=== PATIENT | female | born 1945 | race African-American/Black ===

== ENCOUNTER 2017-01-18 20:49 | Emergency (ER) | payer MEDICARE, BC ==
[2015-07-05 08:53] VITALS: BMI 37.0
[~2017-01-18 20:49] MED LIST: AMITRIPTYLINE H50 MG PO; BENICAR HCT 40-1 TAB PO; CLARINEX5 MG PO; METOPROLOL TART50 MG PO; PLAVIX75 MG; PLAVIX75 MG PO; PREDNISONE1 MG
== END 2017-01-18 22:51 | disposition home or self-care (01) ==
LOC: D.ER 20:49
DX: K08.89 Other specified disorders of teeth and supporting structures (principal); K04.7 Periapical abscess without sinus; I10 Essential (primary) hypertension

== ENCOUNTER 2017-08-16 01:13 | Emergency (ER) | payer MEDICARE, BC ==
[2015-07-05 08:53] VITALS: BMI 37.0
== END 2017-08-16 02:28 | disposition home or self-care (01) ==
LOC: D.ER 01:13
DX: I10 Essential (primary) hypertension (principal); R51 Headache

== ENCOUNTER 2017-08-25 18:51 | Emergency (ER) | payer MEDICARE, BC ==
[2015-07-05 08:53] VITALS: BMI 37.0
== END 2017-08-25 20:00 | disposition home or self-care (01) ==
LOC: D.ER 18:51
DX: I10 Essential (primary) hypertension (principal); F41.9 Anxiety disorder, unspecified

== ENCOUNTER 2017-08-29 20:05 | Emergency (ER) | payer MEDICARE, BC ==
[2015-07-05 08:53] VITALS: BMI 37.0
== END 2017-08-29 22:07 | disposition home or self-care (01) ==
LOC: D.ER 20:05
DX: I10 Essential (primary) hypertension (principal)

== ENCOUNTER 2017-09-04 21:27 | Emergency (ER) | payer MEDICARE, BC ==
[2015-07-05 08:53] VITALS: BMI 37.0
== END 2017-09-05 00:27 | disposition home or self-care (01) ==
LOC: D.ER 21:27
DX: I10 Essential (primary) hypertension (principal); R51 Headache

== ENCOUNTER 2017-09-07 05:33 | Observation (INO) | payer MEDICARE, BC ==
[~2017-09-07] VITALS: Ht 162.6 cm; Wt 101.8 kg
--- NOTE | ~2017-09-07 | HEMODYNAMI ---
PATIENT:LIBRA SNIDER MEDICAL RECORD: [id number] : 45 LOCATION[facility] D.[id number] ADMISSION DATE: 09/07/17 Generatedon:09/07/201714:24 Patient name: LIBRA SNIDER Patient #: [id number] SSN: : 1945 Date of study: 09/07/2017 Page: Of Hemodynamic Procedure Report Patient Data Patient Demographics Procedure consent was obtained First Name: LIBRA Gender: Female Last Name: AGATHA : 1945 Middle Initial: Julian Age: 72 year(s) Patient #: [id number] Race: Black Additional ID: [id number] Contact details Address: [address] [place] [address] State: [place] City: [place] Zip code: [address] Past Medical History Allergies Allergen Reaction Date Comments Reported Other allergy 07/05/2015 *Shrimp* Codeine 07/05/2015 Admission Admission Data Admission Date: 09/07/2017 Admission Time: 6:28 Room #: D.2116 Lab Results Lab Result Date: 09/07/2017 Lab Result Time: 0:00 Biochemistry Name Units Result Min Max BUN mg/dl 10 --(-*--)-- 7 18 Creatinine mg/dl 0.8 --(-*--)-- 0.6 1.3 CBC Name Units Result Min Max Hemoglobin g/dl 14.8 --(-*--)-- 13.5 17.5 Procedure Procedure Types Cath Procedure Diagnostic Procedure LHC LH w/Coronaries Sedation Charges Moderate Sedation up to 15 minutes Procedure Description Procedure Date Procedure Date: 09/07/2017 Procedure Start Time: 14:07 Procedure End Time: 14:24 Procedure Staff Name Function Vinny Hagan MD Performing Physician Aidee Shin RT Monitor Candice Sheikh RT Scrub Vignesh Alexandre RN Nurse Procedure Data Cath Procedure Fluoroscopy Diagnostic fluoroscopy Total fluoroscopy Time: 1 time: 1 min min Diagnostic fluoroscopy Total fluoroscopy dose: 428 dose: 428 mGy mGy Contrast Material Contrast Material Type Amount (ml) Isovue 300 50 Entry Location Entry Primary Successful Side Size Upsize Upsize Entry Closure Succes sful Closure Location (Fr) 1 (Fr) 2 (Fr) Remarks Device Remarks Femoral Right 5 Fr Exoseal artery Estimated blood loss: 5 ml Procedure Complications No complications Procedure Medications Medication Administration Route Dosage Oxygen etCO2 Nasal cannula 2 l/min Heparin Flush Bag added to field 2 bags (1000units/500ml NS) 0.9% NaCl I.V. 100 ml/hr Radial Cocktail added to field 1 syringe (Verapomil 2mg/Nitro 400mcg/Heparin 1500units) Fentanyl I.V. 50 mcg Versed I.V. 1 mg Fentanyl I.V. 50 mcg Versed I.V. 1 mg Fentanyl I.V. 50 mcg Fentanyl I.V. 50 mcg Hemodynamics Rest HGB: 14.8 (g/dl) Heart Rate: 99 (bpm) Pressure Samples Time Site Value (mmHg) Purpose Heart Use Rate(bpm) 14:21 LV 141/14,19 Snapshot 102 Gradients Valve Time Site Site Mean SEP/DFP Peak To Heart Use 1 2 (mmHg) (sec/min) Peak Rate (mmHg) (bpm) Aortic 14:21 LV AO 100 Snapshots Pre Cath Intra NCS Post Cath Vital Signs Time Heart Resp SPO2 etCO2 NIBP (mmHg) Rhythm Pain Sedation Rate (ipm) (%) (mmHg) Status Level (bpm) 13:58:59 102 16 92 5.2 190/93(133) NSR 0 (11) 10(A) , No pain 14:03:25 107 17 92 18.8 158/80(110) NSR 0 (11) 10(A) , No pain 14:07:51 103 17 93 33 153/75(105) NSR 0 (11) 9(A) , No pain 14:11:59 98 16 95 0 102/76(98) NSR 0 (11) 9(A) , No pain 14:16:54 97 16 95 36.1 125/73(92) NSR 0 (11) 9(A) , No pain 14:21:08 99 17 92 34.6 120/70(104) NSR 0 (11) 9(A) , No pain 14:23:48 98 16 88 28.5 105/86(100) NSR 0 (11) 9(A) , No pain Medications Time Medication Route Dose Verified Delivered Reason Notes Ef fectiveness by by 14:03:20 Oxygen etCO2 2 l/min Vinny Medellin Per Nasal [facility] Alex Alexandre RN physician cannula 14:03:28 Heparin Flush added 2 bags Vinny Medellin used for Bag to [facility] Alex Alexandre fishing rod marker (1000units/500ml field JUARES NS) 14:03:36 0.9% NaCl I.V. 100 Vinny Medellin Per ml/hr [facility] Alex Alexandre RN physician 14:03:45 Radial Cocktail added 1 Vinny Medellin used for (Verapomil to syringe [facility] Alex Alexandre fishing rod marker 2mg/Nitro field JUARES 400mcg/Heparin 1500units) 14:03:51 Fentanyl I.V. 50 mcg Vinny Medellin for BentleyAlex Alexandre RN sedation 14:03:58 Versed I.V. 1 mg Vinny Medellin for BentleyAlex Alexandre RN sedation 14:07:28 Fentanyl I.V. 50 mcg Vinny Medellin for BentleyAlex Alexandre RN sedation 14:07:30 Versed I.V. 1 mg Vinny Medellin for BentleyAlex Alexandre RN sedation 14:16:47 Fentanyl I.V. 50 mcg Vinny Medellin for BentleyAlex Alexandre RN sedation 14:19:15 Fentanyl I.V. 50 mcg Vinny Medellin for BentleyAlex Alexandre RN sedation Procedure Log Time Note 13:30:27 Candice Sheikh RT(R) sent for patient. Start room use. 13:45:29 Time tracking: Regular hours (M-F 7:00 - 5:00) 13:45:33 Plan of Care:Hemodynamics will remain stable., Cardiac rhythm will remain stable., Comfort level will be maintained., Respiratory function will remain adequate., Patient/ family verbilizes understanding of procedure., Procedure tolerated without complication., Recovers from procedure without complications.. 13:57:38 Vital chart was started 14:01:36 Patient received from Med II to [facility] 2 Alert and oriented. Tansferred to table in Supine position. 14:01:37 Warm blankets applied, and richie hugger turned on for patient comfort. 14:01:38 Correct patient and procedure confirmed by team. 14::39 Signed procedure consent form obtained from patient. 14:01:39 ECG and BP/O2 sat monitors applied to patient. 14:01:40 Baseline sample Acquired. 14:01:43 Rhythm: sinus rhythm 14:01:45 Full Disclosure recording started 14:01:48 H&P Date Dictated: 09/07/2017 New H&P dictated by physician.. 14:01:50 Pre-procedure instructions explained to patient. 14:01:50 Pre-op teaching completed and patient verbalized understanding. 14:01:51 Family in waiting room. 14:01:52 Patient NPO since Midnight. 14:01:55 Is the patient allergic to Iodine/contrast media? Yes. 14:01:56 Was the patient premedicated? Yes 14:01:57 Is patient on blood thinner?Yes 14:02:05 Is patient on blood thinner?No 14:02:06 Patient diabetic? No. 14:02:09 Previous problem with sedation/anesthesia? No ? 14:02:11 Snore? Yes 14:02:11 Sleep apnea? No 14:02:12 Deviated septum? No 14:02:13 Opens mouth fully? Yes 14:02:13 Sticks out tongue? Yes 14:02:16 Airway obstruction? No ? 14:02:19 Dentures? No ? 14:02:22 Pre procedure: right dorsailis pedis pulse 2+ Normal; easily identifiable; not easily obliterated 14:02:24 Pre procedure: left dorsailis pedis pulse 2+ Normal; easily identifiable; not easily obliterated 14:02:26 Patient pain scale 0/10 ?. 14:02:40 IV patent on arrival in right antecubital with 0.9% NaCl at O. 14:02:42 Lab results completed and on chart. 14:02:47 Right Radial & Right Groin area was prepped with chlora-prep and draped in sterile fashion 14:02:48 Alarms reviewed by R. N. 14:02:49 Sharps counted by scrub and verified by R.N. 14:02:50 Physician arrived 14:02:50 --------ALL STOP TIME OUT------ 14:02:51 Final Timeout: patient, procedure, and site verified with staff and physician. All members of the team are in agreement. 14:02:53 Right Radial & Right Groin site verified by team. 14:02:56 Physical assessment completed. ASA score P 2 - A patient with mild systemic disease as per Vinny Hagan MD. 14:03:05 Sedation plan: IV Moderate Sedation Medication:Versed, Fentanyl 14:03:20 Oxygen 2 l/min etCO2 Nasal cannula was administered by Vignesh Alexandre RN; Per physician; 14:03:28 Heparin Flush Bag (1000units/500ml NS) 2 bags added to field was administered by Vignesh Alexandre RN; used for procedure; 14:03:36 0.9% NaCl 100 ml/hr I.V. was administered by Vignesh Alexandre RN; Per physician; 14:03:45 Radial Cocktail (Verapomil 2mg/Nitro 400mcg/Heparin 1500units) 1 syringe added to field was administered by Vignesh Alexandre RN; used for procedure; 14:03:51 Fentanyl 50 mcg I.V. was administered by Vignesh Alexandre RN; for sedation; 14:03:58 Versed 1 mg I.V. was administered by Vignesh Alexandre RN; for sedation; 14:04:30 Use device set Radial Dx or PCI 14:04:31 ACIST Syringe (69069) opened to sterile field. 14:04:32 Medline Cath Pack ([id number]) opened to sterile field. 14:04:33 Bag Decanter () opened to sterile field. 14:04:33 DIAGNOSTIC WIRE .035 260cm J wire (697257) opened to sterile field. 14:04:33 ACIST Hand Control (75064) opened to sterile field. 14:04:34 ACIST Manifold (02921) opened to sterile field. 14:04:34 Tegaderm 4 x 4 (1626W) opened to sterile field. 14:04:35 MBrace Wrist Support ([id number]) opened to sterile field. 14:04:37 SHEATH 6Fr Prelude Radial ([id number]) opened to sterile field. 14:05:24 Lab Result : Hemoglobin 14.8 g/dl 14:05:24 Lab Result : Creatinine 0.8 mg/dl 14:05:24 Lab Result : BUN 10 mg/dl 14:05:58 Procedure started. 14:07:28 Fentanyl 50 mcg I.V. was administered by Vignesh Alexandre RN; for sedation; 14:07:30 Versed 1 mg I.V. was administered by Vignesh Alexandre RN; for sedation; 14:07:32 Local anesthetic to right radial artery with Lidocaine 2% by Vinny Hagan MD.INITIAL ACCESS ONLY 14:15:28 unable to gain radial access; preparing for femoral access 14:15:31 Local anesthetic to right femoral artery with Lidocaine 2% by Vinny Hagan MD.ADDITIONAL ACCESS 14:16:40 DIAGNOSTIC Multipack 5Fr catheter set ([id number]) opened to sterile field. 14:16:42 SHEATH 5Fr Prelude ([id number]) opened to sterile field. 14:16:47 Fentanyl 50 mcg I.V. was administered by Vignesh Alexandre RN; for sedation; 14:16:54 A 5 Fr sheath was inserted into the Right Femoral artery 14:17:31 5 Fr jl 4 guide catheter was inserted over the wire 14:17:37 LCA angiography performed. 14:17:39 Injector settings: Ml/sec: 3, Volume: 6, 14:17:40 Catheter removed. 14:17:47 5 Fr 3drc guide catheter was inserted over the wire 14:19:15 Fentanyl 50 mcg I.V. was administered by Vignesh Alexandre RN; for sedation; 14:19:49 RCA angiography performed. 14:19:51 Injector settings: Ml/sec: 3, Volume: 6, 14:19:58 Catheter removed. 14:20:06 EXOSEAL 5Fr (EX500) opened to sterile field. 14:20:56 5 Fr pig guide catheter was inserted over the wire 14:21:13 LV hemodynamics recorded. 14:21:15 LV gram done using FERREIRA 14:21:17 Injector settings: Ml/sec: 5, Volume: 15, 14:21:25 EF : 55 % 14:21:58 Catheter removed. 14:22:07 Sheath removed intact; hemostasis achieved with Exoseal to the Right Femoral artery. 14:22:10 Procedure ended.(Physican Out) 14:22:25 Fluoroscopy time 01.00 minutes. 14:22:29 Fluoroscopy dose: 428 mGy 14:22:29 Flurop Dose total: 428 14:22:33 Contrast amount:Isovue 300 50ml. 14:22:35 Sharps counted by scrub and verified by R.N. 14:22:37 Insertion/operative site no bleeding no hematoma. 14:22:40 Post-op/insertion site Right Femoral artery dressed using a 4 x 4 and Tegaderm. 14:22:42 Post right femoral artery:stable 14:22:47 Post procedure rhythm: unchanged. 14:22:49 Estimated blood loss: 5 ml 14:22:51 Post procedure instruction explained to patient.Patient verbalizes understanding. 14:22:51 Patient needs reinforcement of post procedure teaching. 14:23:17 Procedure type changed to Cath procedure, Diagnostic procedure, LHC, LHC w/Coronaries, Sedation Charges, Moderate Sedation up to 15 minutes 14:23:18 Procedure and supply charges have been captured, reviewed, submitted and are correct. 14:23:24 Procedure Complication : No complications 14:23:26 Vital chart was stopped 14:23:26 See physician's report for complete and final results. 14:23:57 Report given to CVICU. 14:24:00 Patient transfered to [facility] II with Stretcher. 14:24:01 Procedure ended. 14:24:01 Full Disclosure recording stopped 14:24:05 End room use (Document Last) Device Usage Item Name Manufacture Quantity Catalog Number Hospital Part Current M inimal Lot# / Charge Number Stock Stock Serial# Code ACIST Syringe Acist 1 84839 [id number] 2 0 (23660) [employer] Medline Cath Cardinal 1 [id number] 982536 88418 292489 5 [facility] ([id number]) Bag Decanter Microtek 1 2001S 157410 57021 694956 5 () Medical Inc. DIAGNOSTIC WIRE [facility] [place] 1 409446 087481 302057 501188 3 0 .035 260cm J wire (862009) ACIST Hand Acist 1 13665 759902 158931 712228 5 Control (05488) [employer] ACIST Manifold Acist 1 10093 751149 430791 699349 5 (28434) [employer] Inc Tegaderm 4 x 4 3M 1 1626W 954557 815924 549864 5 (1626W) MBrace Wrist Advanced 1 140-0250-00 044522 21513 547058 5 Support Vascular ([id number]) Dynamics SHEATH 6Fr Merit 1 [id number] 599813 357387 284343 5 Prelude Radial Medical ([id number]) DIAGNOSTIC Cardinal 1 [id number] 427274 97429 772964 3 0 Multipack 5Fr Health catheter set (GR2375) SHEATH 5Fr Merit 1 [id number] 245793 764561 657753 5 Prelude Medical ([id number]) EXOSEAL 5Fr Cardinal 1 EX500 436100 851564 744979 1 0 (EX500) Health Signature Audit [place] Stage Time Signature Unsigned Intra-Procedure 09/07/2017 Aidee Shin 2:24:40 PM RT(R) Signatures Monitor : Aidee Shin RT Signature : Date : Time : [facility] [address] [place] [address]
--- NOTE | ~2017-09-07 | CN ---
PATIENT NAME:LIBRA SNIDER MEDICAL RECORD: [id number] : 45 LOCATION:[facility] D.2116 ADMIT DATE: 09/07/17 ACCOUNT: [id number] CONSULTING PHYSICIAN: ERIK KHAN MD REFERRING PHYSICIAN: SUDHIR MENDEZ MD DATE OF CONSULTATION: 09/07/2017 HISTORY OF PRESENT ILLNESS: A 72-year-old female with a known history of coronary artery disease, has a history of hypertension, family history of coronary artery disease, was awoken last night with a chest pressure and tightness. Pressures were elevated. She has had problem with her pressures being up over the past month or so. She has not been able to be as active, mother being in the hospital for the last 5 weeks. Pain accompanied by shortness of breath and nausea. We are asked to see her concerning her cardiovascular status. PAST MEDICAL HISTORY: Includes history of hypertension. ALLERGIES: IODINE, CODEINE, AZITHROMYCIN. MEDICATIONS: Include Clarinex 5 mg p.o. every day, metoprolol 50 b.i.d., Benicar 40/12.5, amitriptyline 50 q.h.s. SOCIAL HISTORY: , lives here in [place]. Able to take care of all her ADLs. No set exercise program. Nonsmoker, nondrinker. REVIEW OF SYSTEMS: The patient reports easy bruising but reports no swollen glands. The patient reports no fever, no night sweats, no significant weight gain, no significant weight loss. No significant exercise tolerance. The patient reports no dry eyes, no irritation, no vision change. Patient reports no difficulty hearing and no ear pain. Patient reports no frequent nose bleeds or nose and sinus problems. Patient reports on arm pain on exertion. No shortness of breath while lying down. No history of heart murmur. Patient reports no cough, no wheezing or coughing up blood. Patient reports no abdominal pain, no vomiting. Normal appetite. No diarrhea and not vomiting blood. No nausea and no constipation. Patient reports no incontinence. No difficulty urinating. No hematuria. No increased frequency. Patient reports no muscle aches. No weakness, no arthralgias, no back pain. No swelling of the extremities. Patient reports no abnormal mole, no jaundice, no rashes. Reports no loss of consciousness. No weakness and no numbness. No seizures, dizziness, or headaches. The patient reports no depression, no sleep disturbance, feeling safe in a relationship and no alcohol abuse. Patient reports on fatigue. Reports no runny nose or sinus pressure. No itching, no hives, and no frequent sneezing. PHYSICAL EXAMINATION: GENERAL: Pleasant female in no acute distress. VITAL SIGNS: Blood pressure 132/66, pulse 81 and regular. HEENT: Normocephalic, atraumatic. NECK: No JVD or bruit. HEART: Regular. LUNGS: Jacinto clear. ABDOMEN: Soft, nontender. EXTREMITIES: Pulses 2+ with no edema. CONSULT REPORT [id number] LIBRA SNIDER DIAGNOSTIC DATA: ECG shows LVH. IMPRESSION: Difficult to tell if this is a demand ischemic type symptomatology with elevated blood pressure versus a true de wallace lesion. We will plan for diagnostic angiography. Intervention based on the above. TRANSINT:[id number] Voice Confirmation ID: [id number] DOCUMENT ID: [id number] ERIK KHAN MD at 1214 CC: [id number] DICTATION DATE: 09/07/17 08 ORDER CONTROL CLERK BLOOD BANK: 09/07/17 1240 DIS IN 09/07/17 [place] [id number] [place] [address]
--- NOTE | ~2017-09-07 | OP ---
PATIENT NAME: LIBRA SNIDER MEDICAL RECORD: [id number] :45 LOCATION:D.M2 D.2116 ADMISSION DATE:09/07/17 SURGEON: ERIK KHAN MD DATE OF OPERATION: 09/07/2017 PROCEDURES: Left heart catheterization, selective coronary angiography, right femoral artery approach. Unable to cannulate radial. CATHETERS: A 5-Korean sheath, 5/4 left and right Rudolph, 5/4 pig. The procedure was well tolerated, the patient returned to rodriguez, sheath removed. ExoSeal device placed. FINDINGS: Left ventriculography in the 30-degree FERREIRA view: Normal wall motion. Normal systolic function. CORONARY ANATOMY LEFT MAIN: Left main is free of disease. LAD: Free of disease in the diagonal system. CIRCUMFLEX: Free of disease in the marginal system. RIGHT CORONARY ARTERY: Dominant artery, gives rise to PDA, free of disease. IMPRESSION: Normal LV systolic function. Normal coronary anatomy. TRANSINT:[id number] Voice Confirmation ID: [id number] DOCUMENT ID: [id number] ERIK KHAN MD at 1214 CC: [id number] DICTATION DATE: 09/07/17 1426 CLINICAL RESEARCH ANALYST: 09/07/17 1444 DIS IN 09/07/17 [facility] [address] [place] [address]
[2017-09-07 05:51] LABS: BASOPHILS 0.1 % (0-2); EOSINOPHILS 1.6 % (0-7); HEMATOCRIT 44.3 % (36.0-48.0); HEMOGLOBIN 14.8 g/dL (12-16); IMMATURE GRANULOCYTES 0.2 % (0-5); LYMPHOCYTES 42.6 % (15-50); MCH 32.1 pg (26.0-34.0); MCHC 33.4 g/dL (31.0-37.0); MCV 96.1 fL (80.0-100.0); MEAN PLATELET VOLUME 10.7 fL (7.4-10.4); MONOCYTES 8.8 % (2-11); NEUTROPHILS 46.7 % (40-80); PLATELET COUNT 222 10x3/uL (130-400); RBC 4.61 10x6/uL (4.00-5.40); RDW 13.7 % (11.5-14.5); WBC 9.2 10x3/uL (4.8-10.8)
[2017-09-07 06:06] LABS: ALBUMIN 3.8 g/dL (3.4-5.0); ALKALINE PHOSPHATASE 91 U/L (46-116); ALT (SGPT) 38 U/L (10-68); CALC OSMOLALITY 278 mosm/kg (275-300); CARBON DIOXIDE 23.2 mmol/L (21.0-32.0); CHLORIDE - SERUM 103 mmol/L (98-107); CREATININE - SERUM 0.8 mg/dL (0.6-1.3); GLUCOSE 131 mg/dL (74-106); POTASSIUM - SERUM 3.1 mmol/L (3.5-5.1); PROTEIN - SERUM 7.8 g/dL (6.4-8.2); SODIUM 139 mmol/L (136-145); UREA NITROGEN 10 mg/dL (7-18); eGFR NON AFRICAN AMERICAN 75 mL/min (90-120)
[2017-09-07 06:17] LABS: CKMB 1.6 U/L (0.0-3.6); CREATINE KINASE 130 UL (21-215); TROPONIN-I < 0.017 ng/mL (0.000-0.060)
[2017-09-07 06:30] LABS: CHOL - HDL RATIO 3.3 ratio (2.3-4.1); LDL-HDL RATIO 1.9 ratio (1.5-3.5)
[2017-09-07 08:33] VITALS: BP 132/66
[2017-09-07] MEDS ORDERED: HYDRALAZINE HCL50 MG PO (08:34)
[2017-09-07] MEDS ORDERED: NIFEDIPINE ER60 MG PO (08:35)
[2017-09-07] MEDS ORDERED: ZYLOPRIM300 MG PO (08:36)
[2017-09-07 09:50] VITALS: BP 132/66; BMI 38.5
[2017-09-07 11:41] VITALS: BP 175/81
[2017-09-07 11:46] LABS: CKMB 1.6 U/L (0.0-3.6); CREATINE KINASE 117 UL (21-215); TROPONIN-I 0.018 ng/mL (0.000-0.060)
[2017-09-07 13:47] VITALS: Ht 162.6 cm; Wt 101.8 kg
[2017-09-07 15:37] VITALS: BP 145/79
[2017-09-07 16:45] LABS: CKMB 1.2 U/L (0.0-3.6); CREATINE KINASE 98 UL (21-215)
[2017-09-07 16:55] LABS: TROPONIN-I < 0.017 ng/mL (0.000-0.060)
== END 2017-09-07 18:12 | disposition home or self-care (01) ==
LOC: D.ER 05:33 → D.M2 06:28 → OBSVTIME 06:28 → D.M2 18:12
PROVIDERS: Emergency Medicine
DX: R07.9 Chest pain, unspecified (principal); I10 Essential (primary) hypertension; F41.9 Anxiety disorder, unspecified; I25.10 Atherosclerotic heart disease of native coronary artery without angina pectoris

== ENCOUNTER 2017-09-12 16:57 | Emergency (ER) | payer MEDICARE, BC ==
[2017-09-07 13:47] VITALS: BMI 38.5
[~2017-09-12 16:57] MED LIST changes: +HYDRALAZINE HCL50 MG PO; +NIFEDIPINE ER60 MG PO; +ZYLOPRIM300 MG PO
== END 2017-09-12 18:16 | disposition home or self-care (01) ==
LOC: D.ER 16:57
DX: G43.909 Migraine, unspecified, not intractable, without status migrainosus (principal)